=== PATIENT | female | born 1930 | race Caucasian/White ===

== ENCOUNTER 2018-01-29 13:58 | Inpatient (IN) | payer MEDICARE ==
[~2018-01-29] VITALS: Ht 160 cm; Wt 44.0 kg
[2018-01-29] MEDS ORDERED: SODIUM CHLORIDE FLUSH 10ML SYR IVF ONE (14:30)
[2018-01-29 14:50] LABS: ALANINE AMINOTRANSFERASE 11 U/L (12-78); ALBUMIN 3.1 g/dL (3.4-5.0); ANION GAP 5 mmol/L (5-15); CALCIUM 9.4 mg/dL (8.5-10.1); CHLORIDE 97 mmol/L (98-107); CREATININE 2.96 mg/dL (0.55-1.02)
[2018-01-29 14:53] LABS: ALKALINE PHOSPHATASE 165 U/L (45-117); BILIRUBIN,TOTAL 0.3 mg/dL (0.2-1.0); TOTAL PROTEIN 7.1 g/dL (6.4-8.2)
[2018-01-29 15:05] LABS: MD YES; MEAN CORPUSCULAR HEMOGLOBIN 21.3 pg (27.0-34.8); MEAN CORPUSCULAR HGB CONC 31.2 g/dL (32.4-35.8); MEAN CORPUSCULAR VOLUME 68.4 fL (80-100); MEAN PLATELET VOLUME 9.1 fL (7.4-10.4); PLATELET COUNT 156 x10^3/uL (130-400); RED CELL DISTRIBUTION WIDTH 20.3 % (9.6-15.2)
[2018-01-29] MEDS ORDERED: OMNIPAQUE 350 MG/ML, 100ML BOTTLE ONE (15:23)
[2018-01-29 15:37] LABS: EOS#(MANUAL) 0.42 x10^3/uL (0.0-0.4); EOS% (MANUAL) 6 % (1-7); LYMPH#(MANUAL) 2.17 x10^3/uL (1-3.4); LYMPHS% (MANUAL) 31 % (22-44); MONOS% (MANUAL) 10 % (2-9); SEG#(MANUAL) 3.71 x10^3/uL (1.8-6.8); SEGS% (MANUAL) 53 % (42-75)
[2018-01-29 15:38] LABS: <PLATELET ESTIMATE> ADEQUATE; <PLT MORPHOLOGY> NORMAL PLT MORPH; ANISOCYTOSIS 1+; SCHISTOCYTES 1+; TARGET CELLS 1+
[2018-01-29 16:11] LABS: TROPONIN I 0.075 ng/mL (0.000-0.045)
[2018-01-29] MEDS ORDERED: CHOL100011 PO (16:22)
[2018-01-29] MEDS ORDERED: OXYC5CAP2 PO (16:22)
[2018-01-29] MEDS ORDERED: AMIT10TA PO (16:22)
[2018-01-29] MEDS ORDERED: CALC667C PO (16:22)
[2018-01-29] MEDS ORDERED: AMLO5TAB7 PO (16:22)
[2018-01-29] MEDS ORDERED: CARV12.543 PO ×2 (16:24→16:28)
[2018-01-29] MEDS ORDERED: HYDR-3237 PO (16:25)
[2018-01-29] MEDS ORDERED: ONDANSETRON 2MG/ML, 2ML IVPush PRN (16:30)
[2018-01-29] MEDS ORDERED: POLYETHYLENE GLYCOL 17 GM PACKET PO PRN (16:30)
[2018-01-29] MEDS ORDERED: ONDANSETRON ODT 4 MG PO PRN (16:30)
[2018-01-29 16:56] LABS: FREE T4 (FREE THYROXINE) 1.1 ng/dL (0.76-1.46)
[2018-01-29 17:08] VITALS: BP 154/94
[2018-01-29 17:29] VITALS: BP 151/89
[2018-01-29 19:27] VITALS: BP 151/89
[2018-01-29] MEDS: CARVEDILOL 12.5 MG TABLET PO SCH (19:27)
[2018-01-29] MEDS: CALCIUM ACETATE 667 MG CAPSULE PO SCH (19:27)
[2018-01-30] MEDS ORDERED: HYDROcodone/APAP 5/325 TABLET ONE (02:01)
[2018-01-30] MEDS: HYDROcodone/APAP 5/325 TABLET PO PRN ×2 (02:04→16:13)
[2018-01-30 02:30] VITALS: BP 156/86
[2018-01-30 04:49] VITALS: BP 151/79
[2018-01-30 06:07] LABS: MEAN CORPUSCULAR HEMOGLOBIN 21.4 pg (27.0-34.8); MEAN CORPUSCULAR HGB CONC 31.2 g/dL (32.4-35.8); MEAN CORPUSCULAR VOLUME 68.6 fL (80-100); MEAN PLATELET VOLUME 8.3 fL (7.4-10.4); PLATELET COUNT 130 x10^3/uL (130-400); RED BLOOD COUNT 5.28 x10^6/uL (3.82-5.3)
[2018-01-30 06:20] LABS: CHLORIDE 100 mmol/L (98-107)
[2018-01-30 06:24] LABS: MD YES
[2018-01-30 06:34] LABS: ANISOCYTOSIS 1+; BASOS#(MANUAL) 0.08 x10^3/uL (0-0.1); BASOS% (MANUAL) 1 % (0-1); EOS#(MANUAL) 0.15 x10^3/uL (0.0-0.4); EOS% (MANUAL) 2 % (1-7); LYMPH#(MANUAL) 2.85 x10^3/uL (1-3.4); LYMPHS% (MANUAL) 38 % (22-44); MONOS#(MANUAL) 0.53 x10^3/uL (0.3-2.7); MONOS% (MANUAL) 7 % (2-9); SEGS% (MANUAL) 52 % (42-75)
[2018-01-30 06:35] LABS: <PLATELET ESTIMATE> ADEQUATE; <PLT MORPHOLOGY> NORMAL PLT MORPH; SCHISTOCYTES 1+; TARGET CELLS 1+
[2018-01-30 06:42] LABS: ALANINE AMINOTRANSFERASE 10 U/L (12-78); ALBUMIN 2.5 g/dL (3.4-5.0); ALKALINE PHOSPHATASE 127 U/L (45-117); ANION GAP 11 mmol/L (5-15); BILIRUBIN,TOTAL 0.2 mg/dL (0.2-1.0); CALCIUM 8.9 mg/dL (8.5-10.1); CREATININE 3.74 mg/dL (0.55-1.02); TOTAL PROTEIN 5.8 g/dL (6.4-8.2)
[2018-01-30 06:48] VITALS: BP 125/60
[2018-01-30 08:42] LABS: TROPONIN I 0.062 ng/mL (0.000-0.045)
[2018-01-30] MEDS ORDERED: FUROSEMIDE 40 MG/4 ML IV SCH (09:00)
[2018-01-30] MEDS: CALCIUM ACETATE 667 MG CAPSULE PO SCH ×3 (09:22→20:01)
[2018-01-30] MEDS: CARVEDILOL 12.5 MG TABLET PO SCH ×2 (09:22→20:02)
[2018-01-30] MEDS: AMLODIPINE 5 MG TABLET PO SCH (09:22)
[2018-01-30] MEDS: SENNA/DOCUSATE TABLET PO SCH (09:22)
[2018-01-30 12:08] VITALS: BP 130/64
[2018-01-30 18:33] LABS: CELLS COUNTED 77
[2018-01-30 19:37] VITALS: BP 145/65
[2018-01-31 00:57] VITALS: BP 134/64
[2018-01-31 06:52] LABS: MEAN CORPUSCULAR HGB CONC 30.9 g/dL (32.4-35.8); MEAN CORPUSCULAR VOLUME 67.9 fL (80-100); MEAN PLATELET VOLUME 8.4 fL (7.4-10.4); PLATELET COUNT 152 x10^3/uL (130-400); RED BLOOD COUNT 5.13 x10^6/uL (3.82-5.3); RED CELL DISTRIBUTION WIDTH 20.9 % (9.6-15.2)
[2018-01-31 06:53] VITALS: BP 144/71
[2018-01-31 07:02] LABS: ALANINE AMINOTRANSFERASE 10 U/L (12-78); ALBUMIN 2.6 g/dL (3.4-5.0); ANION GAP 9 mmol/L (5-15); CALCIUM 9.2 mg/dL (8.5-10.1); CHLORIDE 98 mmol/L (98-107); CREATININE 4.97 mg/dL (0.55-1.02)
[2018-01-31 07:04] LABS: ALKALINE PHOSPHATASE 131 U/L (45-117); BILIRUBIN,TOTAL 0.3 mg/dL (0.2-1.0); TOTAL PROTEIN 5.9 g/dL (6.4-8.2)
[2018-01-31 07:31] LABS: MD YES
[2018-01-31 07:32] LABS: EOS#(MANUAL) 0.18 x10^3/uL (0.0-0.4); EOS% (MANUAL) 2 % (1-7); LYMPH#(MANUAL) 2.97 x10^3/uL (1-3.4); LYMPHS% (MANUAL) 33 % (22-44); MONOS#(MANUAL) 0.72 x10^3/uL (0.3-2.7); MONOS% (MANUAL) 8 % (2-9); SEG#(MANUAL) 5.13 x10^3/uL (1.8-6.8); SEGS% (MANUAL) 57 % (42-75)
[2018-01-31 07:33] LABS: ANISOCYTOSIS 1+; MICROCYTOSIS 1+; SCHISTOCYTES 1+; TARGET CELLS 1+
[2018-01-31 07:34] LABS: HYPOCHROMIA 1+
[2018-01-31 07:35] LABS: <PLATELET ESTIMATE> ADEQUATE; <PLT MORPHOLOGY> NORMAL PLT MORPH
[2018-01-31] MEDS: CARVEDILOL 12.5 MG TABLET PO SCH ×2 (08:39→20:20)
[2018-01-31] MEDS: CALCIUM ACETATE 667 MG CAPSULE PO SCH ×3 (08:39→20:21)
[2018-01-31] MEDS: AMLODIPINE 5 MG TABLET PO SCH (08:39)
[2018-01-31] MEDS: SENNA/DOCUSATE TABLET PO SCH (08:40)
[2018-01-31 12:53] VITALS: BP 136/66
[2018-01-31] MEDS: HYDROcodone/APAP 5/325 TABLET PO PRN (18:34)
[2018-01-31 19:39] VITALS: BP 132/62
[2018-02-01] MEDS: HYDROcodone/APAP 5/325 TABLET PO PRN ×3 (00:21→17:12)
[2018-02-01 01:19] VITALS: BP 156/81
[2018-02-01 05:45] LABS: MEAN CORPUSCULAR HEMOGLOBIN 21.3 pg (27.0-34.8); MEAN CORPUSCULAR HGB CONC 31.3 g/dL (32.4-35.8); MEAN PLATELET VOLUME 8.5 fL (7.4-10.4); PLATELET COUNT 168 x10^3/uL (130-400); RED BLOOD COUNT 5.18 x10^6/uL (3.82-5.3); RED CELL DISTRIBUTION WIDTH 21.2 % (9.6-15.2)
[2018-02-01 05:50] LABS: ALBUMIN 2.7 g/dL (3.4-5.0); ANION GAP 4 mmol/L (5-15); CALCIUM 9.5 mg/dL (8.5-10.1); CHLORIDE 96 mmol/L (98-107)
[2018-02-01 06:08] LABS: MD YES
[2018-02-01 06:09] LABS: ANISOCYTOSIS 1+; BASOS% (MANUAL) 1 % (0-1); EOS#(MANUAL) 0.31 x10^3/uL (0.0-0.4); EOS% (MANUAL) 3 % (1-7); LYMPH#(MANUAL) 2.78 x10^3/uL (1-3.4); LYMPHS% (MANUAL) 27 % (22-44); MICROCYTOSIS 1+; MONOS#(MANUAL) 0.82 x10^3/uL (0.3-2.7); MONOS% (MANUAL) 8 % (2-9); SEG#(MANUAL) 6.28 x10^3/uL (1.8-6.8); SEGS% (MANUAL) 61 % (42-75)
[2018-02-01 06:10] LABS: <PLATELET ESTIMATE> ADEQUATE; <PLT MORPHOLOGY> NORMAL PLT MORPH; HYPOCHROMIA 1+; SCHISTOCYTES 1+; TARGET CELLS 1+
[2018-02-01 07:03] VITALS: BP 142/79
[2018-02-01] MEDS: CALCIUM ACETATE 667 MG CAPSULE PO SCH ×3 (08:38→21:35)
[2018-02-01 12:18] VITALS: BP 125/65
[2018-02-01] MEDS: AMLODIPINE 5 MG TABLET PO SCH (13:16)
[2018-02-01] MEDS: CARVEDILOL 12.5 MG TABLET PO SCH ×2 (13:17→21:35)
[2018-02-01] MEDS: SENNA/DOCUSATE TABLET PO SCH (13:17)
[2018-02-02 01:13] VITALS: BP 126/54
[2018-02-02] MEDS: HYDROcodone/APAP 5/325 TABLET PO PRN ×2 (04:21→15:26)
[2018-02-02 06:09] LABS: ALBUMIN 2.5 g/dL (3.4-5.0); ANION GAP 6 mmol/L (5-15); CALCIUM 8.8 mg/dL (8.5-10.1); CHLORIDE 100 mmol/L (98-107); CREATININE 4.05 mg/dL (0.55-1.02)
[2018-02-02 06:35] VITALS: BP 132/70
[2018-02-02] MEDS: SENNA/DOCUSATE TABLET PO SCH (07:54)
[2018-02-02] MEDS: AMLODIPINE 5 MG TABLET PO SCH (07:54)
[2018-02-02] MEDS: CALCIUM ACETATE 667 MG CAPSULE PO SCH ×2 (07:55→15:26)
[2018-02-02] MEDS: CARVEDILOL 12.5 MG TABLET PO SCH (07:55)
[2018-02-02 12:04] VITALS: BP 114/57
== END 2018-02-02 18:30 | disposition home or self-care (01) | DRG 291 ==
LOC: ED 15:25 → EDIP 15:55 → OBSVTOIN 15:55 → INTOOBSV 15:55 → 4WST 17:01
PROVIDERS: ADMIT Hospitalist; ATTEND Hospitalist
PROC: 0W993ZZ Drainage of Right Pleural Cavity, Percutaneous Approach (ICD-10-PCS; principal; 2018-01-30)
PROC: 5A1D70Z Performance of Urinary Filtration, Intermittent, Less than 6 Hours Per Day (ICD-10-PCS; 2018-02-01)
DX: I13.2 Hypertensive heart and chronic kidney disease with heart failure and with stage 5 chronic kidney disease, or end stage renal disease (principal); N18.6 End stage renal disease; E43 Unspecified severe protein-calorie malnutrition; I50.33 Acute on chronic diastolic (congestive) heart failure; E85.9 Amyloidosis, unspecified; J96.11 Chronic respiratory failure with hypoxia; E87.1 Hypo-osmolality and hyponatremia; J90 Pleural effusion, not elsewhere classified; R18.8 Other ascites; Z68.1 Body mass index [BMI] 19.9 or less, adult; I16.0 Hypertensive urgency; M19.90 Unspecified osteoarthritis, unspecified site; F32.9 Major depressive disorder, single episode, unspecified; R07.89 Other chest pain; M54.9 Dorsalgia, unspecified; G89.29 Other chronic pain; K76.0 Fatty (change of) liver, not elsewhere classified; D63.1 Anemia in chronic kidney disease; E78.5 Hyperlipidemia, unspecified; E87.5 Hyperkalemia; E87.70 Fluid overload, unspecified; K59.00 Constipation, unspecified; Z66 Do not resuscitate; Z99.2 Dependence on renal dialysis; Z90.710 Acquired absence of both cervix and uterus; Z79.899 Other long term (current) drug therapy; Z99.81 Dependence on supplemental oxygen
CPT/HCPCS: 32555; 36415; 71045; 74177; 80048; 80053; 80069; 82040; 82728; 83540; 83550; 83605; 83615; 83735; 83880; 83986; 84100; 84145; 84157; 84439; 84443; 84484; 85025; 86704; 86706; 87040; 87070; 87205; 87340; 88112; 88305; 89051; 93005; 93970; 99285; G0378; Q9967